=== PATIENT | female | born 1990 | race African-American/Black ===

== ENCOUNTER 2019-12-12 06:41 | Inpatient (IN) ==
[2019-12-12] MEDS ORDERED: D5 1/2 NS 1000 ML 1,000 ML IV ONE (06:47)
[2019-12-12] MEDS ORDERED: D5LR 1L W PITOCIN 10 UNITS/L 10 UNITS/1,000 ML BAG IV ONE (06:48)
[2019-12-12] MEDS ORDERED: PHENERGAN INJ 25 MG IM PRN ×3 (07:11→21:43)
[2019-12-12] MEDS ORDERED: PITOCIN IVP ONE (07:11)
[2019-12-12] MEDS ORDERED: D5LR 1L W PITOCIN 10 UNITS/L 10 UNITS/1,000 ML BAG IV PRN (07:11)
[2019-12-12] MEDS ORDERED: MORPHINE SULFATE INJ 2 MG INJ IVP PRN (07:11)
[2019-12-12] MEDS ORDERED: REGLAN INJ 10 MG VIAL IVP PRN ×3 (07:11→16:58)
[2019-12-12] MEDS: D5 1/2 NS 1000 ML 1,000 ML IV SCH ×2 (07:15→16:29)
[2019-12-12] MEDS ORDERED: STADOL INJ IVP PRN (07:15)
[2019-12-12 08:00] LABS: URIC ACID 4.7 mg/dL (2.6-6.0)
--- NOTE | 2019-12-12 08:11 | US ---
HISTORYFETAL POSITION FOR INDUCTIONSTUDYOB GREATER THAN 14 WEEKS [id number]/30/2020TECHNIQUELimited Ob ultrasoundFINDINGSSingle gestational with ceph alic presentation. Placental location is anterior. heart rate 150 beats per minute. Four-chambe r heart is present. BPD 85 cm the weeks 2 days.IMPRESSIONCephalic presentation.Electronically signed by: Elton Aguillon (Dec 12, 2019 08:11:01)
[2019-12-12] MEDS ORDERED: NS IRRIGATION* 1,000 ML ONE (13:56)
[2019-12-12] MEDS ORDERED: LR 1000 ML IV 1,000 ML IV ONE ×2 (14:45→16:06)
[2019-12-12] MEDS ORDERED: ANCEF IV ONE (14:46)
[2019-12-12] MEDS ORDERED: DILAUDID INJ ONE (15:14)
[2019-12-12] MEDS ORDERED: EPHEDRINE SULFATE INJ ONE (15:20)
[2019-12-12] MEDS ORDERED: VERSED ONE (15:20)
[2019-12-12] MEDS ORDERED: PITOCIN ONE (15:20)
[2019-12-12] MEDS ORDERED: ZOFRAN INJ 4 MG VIAL IVP PRN (16:52)
[2019-12-12] MEDS ORDERED: DILAUDID INJ IVP PRN (16:52)
[2019-12-12] MEDS ORDERED: BENADRYL INJ 50 MG VIAL IVP PRN ×2 (16:52→16:58)
[2019-12-12] MEDS ORDERED: TORADOL 30 MG VIAL IVP PRN (16:58)
[2019-12-12] MEDS ORDERED: PERCOCET TAB 5/325 MG PO PRN (16:58)
[2019-12-12] MEDS ORDERED: NARCAN INJ IVP PRN (16:58)
[2019-12-12] MEDS ORDERED: MILK OF MAGNESIA PO PRN (17:19)
[2019-12-12] MEDS ORDERED: ADACEL or BOOSTRIX TDaP VACCINE IM ONE (17:19)
[2019-12-12] MEDS ORDERED: AMBIEN PO PRN (17:19)
[2019-12-12] MEDS ORDERED: DERMOPLAST PAIN RELIEF SPRAY TOP PRN (17:19)
[2019-12-12] MEDS: TORADOL 30 MG VIAL IVP SCH (18:56)
[2019-12-12] MEDS ORDERED: PHENERGAN INJ 25 MG IM ONE (21:45)
[2019-12-13] MEDS: TORADOL 30 MG VIAL IVP SCH ×4 (01:35→17:56)
[2019-12-13 06:14] LABS: HEMATOCRIT 33.4 % (36.0-47.0); HEMOGLOBIN 11.4 g/dL (12.0-16.0)
--- NOTE | 2019-12-13 07:04 | NOTE.PROBC ---
Progress Note OB-C/S Subjective Data Subjective: No complaints, decreased lochia. Tolerating regular diet. No N/V. Ambulating well. Harvey draining well. Pain under good control with toradol. Objective Data Result Diagrams: 12/13/19 05:05 Objective Data: CV= RRR no MRG Lungs=CTA Bilaterally Abd=(+) BS, soft, ND, appropriately tender near incision. Bandage removed. Incision clean/dry/intact, no erythema, no bleeding, no discharge. Dermabond/St itches intact. Fundus firm/NT/ at -2 cm below umbilicus. Ext= No edema, NT, No Cords. Graduated Compression Stockings/Sequential Compression Devices Bilaterally. Assessment Assessment: routine s/p c/s Plan (1) S/P section: Plan: ambulate tid with PT to decrease risk
[2019-12-13] MEDS: PRENATAL PLUS PO SCH (09:47)
[2019-12-13] MEDS ORDERED: TORADOL 30 MG VIAL IVP PRN (18:00)
[2019-12-13] MEDS: MOTRIN TAB 800 MG PO PRN (18:02)
[2019-12-14] MEDS: MOTRIN TAB 800 MG PO PRN ×2 (04:19→15:12)
[2019-12-14] MEDS: PRENATAL PLUS PO SCH (08:30)
--- NOTE | 2019-12-14 09:29 | NOTE.PROBC ---
Progress Note OB-C/S Subjective Data Subjective: No complaints, decreased lochia. Tolerating regular diet. No N/V. Ambulating well. Harvey draining well. Pain under good control with toradol. Objective Data Result Diagrams: 12/13/19 05:05 Objective Data: CV= RRR no MRG Lungs=CTA Bilaterally Abd=(+) BS, soft, ND, appropriately tender near incision. Bandage removed. Incision clean/dry/intact, no erythema, no bleeding, no discharge. Dermabond/St itches intact. Fundus firm/NT/ at -3 cm below umbilicus. Ext= No edema, NT, No Cords. Graduated Compression Stockings/Sequential Compression Devices Bilaterally. Assessment Assessment: pt doing well and could go home, due to infant not ready I will keep one more day Plan (1) S/P section: Plan: stable and improving
[2019-12-14 16:37] VITALS: BP 141/69
[2019-12-14] MEDS ORDERED: DEPO-PROVERA CONTRACEPTIVE INJ IM ONE (19:21)
--- OUTSIDE RECORDS SUMMARY | 2019-12-16 12:03 | XMS | Continuity of Care Document ---
:1990 Author Name Sales Support Administrator, System Address Unavailable Unavailable , Care Team Providers Name Role Phone No, PCP Unavailable Unavailable Haley Sr, Jovan Perez Unavailable Radha Unavailable Unavailable Lucille Unavailable Unavailable Unavailable Unavailable Problems Name Dates Details Abnormal glucose affecting (O99.810, 648.80) Comments: She has failed her 1 hour GTT and a 3hour GTT has been ordered. Status: Active Anemia, antepartum (O99.019, 648.23) Sta tus: Active BV (bacterial vaginosis) (N76.0, 616.10) Comments: treat with flagyl and macrobidShe had sex last night and started spotting today but also has a dirty urine sample and wet mount Status: Active Dysuria in (O26.899, 646.80) S tatus: Active Encounter for supervision of normal preg zulay in second trimester (Z34.92, V22.1) Status: Active Encounter for supervision of normal preg zulay in third trimester (Renamed from Encounter for supervision of normal first in third trimester) (Z34.03, V22.0) Status: Active Excessive weight gain in in second trimester (O26. 02, 646.13) Status: Active Gestational hypertension, third trimester (O13.3, 642.33) Status: Active Gestational proteinuria, antepartum (O12.10, 646.23) Status: Active Large for dates (P08.1, 766.1) Status: A ctive No pertinent past medical history Status : Active Obesity in , antepartum, third trimester (O99.213, 649.13) Status: Active Pregnancies () Comments: 1. Status: Active Pregnancies (Para) Comments: 0. Status: Active headache in third trimester (O26.893, 646.83) Status: Active Status Comments: . Positive home test. Status: Active Proteinuria (R80.9, 791.0) Status: Activ e TDAP vaccination (41858) (Renamed from N eed for vaccination with diphtheria, tetanus, pertussis (DTP), and Haemophilus influenzae type B vaccine) (Z23, V06.8) Status: Active Urinary tract infection in mother during third trimester of (O23.43, 646.63) Comments: The abx is chosen for coverage of both UTI and a possible sinus issue Status: Active UTI in (O23.40, 646.60) Status : Active Medications Name Dates Details 28-0.8 MG Oral Tablet 1 (one) Tablet daily for 30 days Quantity: 30 {Tablet} Refills: 11 Ordered:28-May-2019 Carmen Garcia Start : 28-May-2019 Active Amoxicillin-Pot Clavulanate 875-125 MG Oral Tablet 1 (one) Tablet two times daily for 7 days Quantity: 14 {Tablet} Refills: 0 Ordered:19-Nov-2019 Jovan De Leon Sr Start : 19-Nov-2019 End : 26-Nov-2019 Inactive Macrodantin 100 MG Oral Capsule 1 (one) Capsule two times daily for 7 days Quantity: 14 {Capsule} Refills: 0 Ordered:05-Jul-2019 Jovan De Leon Sr Start : 05-Jul-2019 End : 12-Jul-2019 Inactive metroNIDAZOLE 500 MG Oral Tablet 1 (one) Tablet two times daily for 7 days Quantity: 14 {Tablet} Refills: 0 Ordered:05-Jul-2019 Jovan De Leon Sr Start : 05-Jul-2019 End : 12-Jul-2019 Inactive No Known Historical Medications Sulfamethoxazole-Trimethoprim 800-160 MG Oral Tablet 1 (one) Tablet two times daily for 7 days Quantity: 14 {Tablet} Refills: 0 Ordered:25-Jul-2019 Jovan De Leon Sr Start : 25-Jul-2019 End : 01-Aug-2019 Inactive Allergies and Adverse Reactions Name Dates Details No Known Allergies (Allergy) Onset: 28-May-2019 Status: Act zelda Past Medical History Name Dates Details Encounter for supervision of normal preg zulay in first trimester (Renamed from Encounter for supervision of normal in first trimester) (Z34.91, V22.1) Status: Inactive as of Encounter for supervision of normal preg zulay in second trimester (Z34.92, V22.1) Status: Inactive as of Nocturia (R35.1, 788.43) Comments: Will send urine for cultureshe only took her Macrobid once per day. Apparently miss-read the rx. Status: Inactive as of 13-Nov-2019 Obesity affecting in second trimester (O99.212, 64 9.13) Status: Inactive as of 25-Oct-2019 Procedures Procedure Dates Details IMMUNIZ ADMNIN, 1 VAC, SNGL/COMBO ([id number]) Date: 04-Dec-2019 Completed 04-Dec-2019 TDAP VACCINE IM, >7 YEARS (18323) Date: 04-Dec-2019 Comple rena 04-Dec-2019 OBSTETRICAL CARE ([id number]) Date: 19-Nov-2019 Completed OBSTETRICAL CARE ([id number]) Date: 28-May-2019 Completed No Surgeries Completed Date Value Details 04-Dec-2019 OBSTETRICAL CARE ([id number]) Result: [MATERNAL / DA TA] [place] by LMP: 12/31/2019; Movement: Present; Edema, face: Trace; Edema, hands: 1+; Edema, legs & feet: 1+; Vaginal Fluid: Absent; Station: out of pelvis [MATERNAL / DATA \ Gestational Age by I nitial Exam] Weeks: 36 Weeks; Days: 1 Day [MATERNAL / DATA \ Fundal Height] Fundal Height (Description): S>D [MATERNAL / DATA \ Heart] Heart Rate: 145 bpm; Heart Tones: Present by doptone; Heart Tone Quadrant: RLQ [CERVIX] Consistency: Average; Length: >2 cm; Position: Posterior; Effacement: Uneffaced; Dilatation: Closed; Membranes: Intact; Assessment method: Vaginal exam [ LIE & PRESENTATION] Lie: Longitudinal; Head: Not Examined; Presentation: Vertex; Descent: Absent [NEXT APPOINTMENT] Initials: ml; Comments: induction next week 27-Nov-2019 OBSTETRICAL CARE ([id number]) Result: [MATERNAL / DA TA] [place] by LMP: 12/31/2019; Labor Signs/Symptoms: 0; Edema, face: 0 [MATERNAL / DATA \ Gestational Age by Initial Exam] Weeks: 35 Weeks; Days: 1 Day [MATERNAL / D TE \ Fundal Height] Fundal Height (Description): S>D [MATERNAL / DATA \ Heart] Heart Rate: 155 bpm; Heart Tones: Present by doptone; Heart Tone Quadrant: RLQ [ LIE & PRESENTATION] Lie: N/A; Head: Not Examined; Presentation: Vertex; Descent: N/A [NEXT APPOINTMENT] Next Appointment: 1 week; Initials: ml; Comments: sched 37 week induction for gestational hypertension 13-Nov-2019 OBSTETRICAL CARE ([id number]) Result: [MATERNAL / DA TA] [place] by LMP: 12/31/2019; Movement: Present; Labor Signs/Symptoms: 0; Edema, face: 0 [MATERNAL / DATA \ Gestational Age by Initial Exam] Weeks: 33 Weeks; Days: 1 Day [MATERNAL / DATA \ Fundal Height] Fundal Height: 40 cm; Fundal Height (Description): S>D [MATERNAL / DATA \ Heart] Heart Rate: 160 bpm; Heart Tones: Present by dop tone; Heart Tone Quadr ant: LLQ [ LIE & PRESENTATION] Lie: Longitudinal; Head: Not Examined; Presentation: Inconclusive [NEXT APPOINTMENT] Next Appointment: 2 weeks; Initials: ml 25-Oct-2019 OBSTETRICAL CARE ([id number]) Result: [MATERNAL / DA TA] [place] by LMP: 12/31/2019; Movement: Present; Labor Signs/Symptoms: 0; Edema, face: 0 [MATERNAL / DATA \ Gestational Age by Initial Exam] Weeks: 30 Weeks; Days: 3 Days [MATERNAL / DIONICIO A \ Fundal Height] Fundal Height (Description): S>D [MATERNAL / DATA \ Heart] Heart Rate: 150 bpm; Heart Tones: Present by doptone; Heart Ton e Quadrant: N/A [ LIE & PRESENTATION] Lie: Inconclusive; Head: Not Examined; Presentation: Inconclusive; Descent: N/A [NEXT APPOINTMENT] Next Appointment: 2 weeks; Initials: ml 11-Oct-2019 OBSTETRICAL CARE ([id number]) Result: [MATERNAL / DA TA] [place] by LMP: 12/31/2019; Movement: Present; Edema, face: 0; Edema, hands: 0; Edema, legs & feet: 0 [MATERNAL / DATA \ Gestational Age by Initial Exam] Weeks: 28 We eks; Days: 3 Days [MATERNAL / DATA \ Fundal Height] Fundal Height (Description): S>D [MATERNAL / DATA \ Heart] Heart Rate: 155 bpm; Heart Tones: Present by doptone; Feta l Heart Tone Quadrant: N/A [ LIE & PRESENTATION] Lie: N/A; Head: Not Examined; Presentation: N/A; Descent: N/A [NEXT APPOINTMENT] Next Appointment: 2 weeks; Initials: ml; Comments: 3 hour GTT ordered 18-Sep-2019 OBSTETRICAL CARE ([id number]) Result: [MATERNAL / DA TA] [place] by LMP: 12/31/2019; Movement: Present; Labor Signs/Symptoms: 0 [MATERNAL / DATA \ Gestational Age by Initial Exam] Weeks: 25 Weeks; Days: 1 Day [MATERNAL / DATA \ Fundal Height ] Fundal Height (Description): S>D [MATERNAL / DATA \ Heart] Heart Rate: 160 bpm; Heart Tones: Present by doptone; Heart Tone Quadrant: N/A [ LIE & PRESENTATION] Fe jay Lie: N/A; Head: Not Examined; Presentation: N/A; Descent: N/A [NEXT APPOINTMENT] Next Appointment: 4 weeks; Initials: ml 03-Sep-2019 OBSTETRICAL CARE ([id number]) Result: [MATERNAL / DA TA] [place] by LMP: 12/31/2019; Movement: Present; Labor Signs/Symptoms: 0; Edema, face: 0 [MATERNAL / DATA \ Gestational Age by Initial Exam] Weeks: 23 Weeks [MATERN AL / DATA \ Fundal Hei ght] Fundal Height (Description): S>D [MATERNAL / DATA \ Heart] Heart Rate: 145 bpm; Heart Tones: Present by doptone; Heart Tone Quadrant: N/ A [ LIE & PRESENTATION] Lie: N/A; Head: Not Examined; Presentation: N/A; Descent: N/A [NEXT APPOINTMENT] Next Appointment: 2 weeks; Initials: 26-Aug-2019 OBSTETRICAL CARE ([id number]) Result: [MATERNAL / DA TA] [place] by LMP: 12/31/2019; Movement: Present; Edema, face: 0; Edema, hands: 0; Edema, legs & feet: 0 [MATERNAL / DATA \ Gestational Age by Initial Exam] Weeks: 21 We eks; Days: 6 Days [MATERNAL / DATA \ Fundal Height] Fundal Height (Description): S>D [MATERNAL / DATA \ Heart] Heart Rate: 155 bpm; Heart Tones: Present by doptone; Feta l Heart Tone Quadrant: N/A [ LIE & PRESENTATION] Lie: N/A; Head: Not Examined; Presentation: N/A; Descent: N/A [NEXT APPOINTMENT] Next Appointment: 3 weeks; Initials: 22-Aug-2019 OBSTETRICAL CARE ([id number]) Result: [MATERNAL / DA TA] [place] by LMP: 12/31/2019; Movement: Present; Labor Signs/Symptoms: 0; Edema, face: Trace [MATERNAL / DATA \ Gestational Age by Initial Exam] Weeks: 21 Weeks; Da ys: 2 Days [MATERNAL / DATA \ Heart] Heart Rate: 160 bpm; Heart Tones: Present by doptone; Heart Tone Quadrant: N/A [ LIE & PRESENTATION] Lie: N/A; Hea d: Not Examined; Prese ntation: N/A; Descent: N/A [NEXT APPOINTMENT] Next Appointment: 4 weeks; Initials: 25-Jul-2019 OBSTETRICAL CARE ([id number]) Result: [MATERNAL / DA TA] [place] by LMP: 12/31/2019; Movement: Not Detected; Labor Signs/Symptoms: 0; Edema, face: 0 [MATERNAL / DATA \ Gestational Age by Initial Exam] Weeks: 17 Weeks; D ays: 2 Days [MATERNAL / FETA L DATA \ Fundal Height] Fundal Height (Description): S>D [MATERNAL / DATA \ Heart] Heart Rate: 160 bpm; Heart Tones: Present by doptone; Hear t Tone Quadrant: N/A [ LIE & PRESENTATION] Lie: N/A; Presentation: N/A; Descent: N/A [NEXT APPOINTMENT] Next Appointment: 4 weeks; Initials: ml 05-Jul-2019 OBSTETRICAL CARE ([id number]) Result: [MATERNAL / DA TA] [place] by LMP: 12/31/2019; Movement: Present; Labor Signs/Symptoms: 0; Edema, face: 0 [MATERNAL / DATA \ Gestational Age by Initial Exam] Weeks: 14 Weeks; Days: 3 Days [MATERNAL / DIONICIO A \ Heart] Heart Rate: 155 bpm; Heart Tones: Present by doptone; Heart Tone Quadrant: N/A [ LIE & PRESENTATION] Lie: N/A; Present ation: N/A; Descent: N /A [NEXT APPOINTMENT] Next Appointment: 3 weeks; Initials: ml 27-Jun-2019 OBSTETRICAL CARE ([id number]) Result: [MATERNAL / DA TA] [place] by LMP: 12/31/2019; Movement: Present; Labor Signs/Symptoms: 0; Edema, face: 0 [MATERNAL / DATA \ Gestational Age by Initial Exam] Weeks: 13 Weeks; Days: 2 Days [MATERNAL / DIONICIO A \ Heart] Heart Rate: 160 bpm; Heart Tones: Present by doptone; Heart Tone Quadrant: N/A [ LIE & PRESENTATION] Lie: N/A; Head: N ot Examined; Presentat ion: N/A; Descent: N/A [NEXT APPOINTMENT] Next Appointment: 4 weeks; Initials: ; Comments: we discussed the MSAFP and she will let us know on the next visit Immunization Name Dates Details Tdap (7 years and up) on: 04-Dec-2019 Comments: [facility] Given: * Tdap (Tetanus, Diphtheria, Pertussis) (05/06/14) Lot #: [id number] Family History Unknown Family Member Name Dates Details Hypertension Comments: Mother. Status: Active Social History Name Dates Details Drug Use: Recently quit drug use. Uses marijuana. Comments: stopped drug use day of confirmed Status: Active Exercise History: housework. yardwork. S tatus: Active Non Drinker/No Alcohol Use Status: Activ e Prior tobacco use Status: Active Status Name Dates Details 04-Dec-2019 [place]: 31-Dec-2019 Vital Signs Date Test Result Details [id number] Body temperature 98.4 f Comments: Meth od: Oral Heart Rate 131 /min Comments: Pattern: R egular Respiratory rate 20 /min Comments: Pattern: U nlabored O2 SAT 98 % Comments: Room air Systolic blood pressure 140 mm[Hg] Comments: Patien t Position: Sitting; Cuff Location: Left Arm; Cuff Size: Standard Diastolic blood pressure 90 mm[Hg] Comments: Patie nt Position: Sitting; Cuff Location: Left Arm; Cuff Size: Standard Weight 309 lb Body height 63 in Body mass index (BMI) [Ratio] 54.74 kg/m2 Body surface area Derived from formula 2.33 m2 :57 Body temperature 96.7 f Comments: Metho d: Oral Heart Rate 137 /min Comments: Pattern: R egular Respiratory rate 18 /min Comments: Pattern: U nlabored O2 SAT 96 % Comments: Room air Systolic blood pressure 150 mm[Hg] Comments: Patien t Position: Sitting; Cuff Location: Left Arm; Cuff Size: Standard Diastolic blood pressure 83 mm[Hg] Comments: Patie nt Position: Sitting; Cuff Location: Left Arm; Cuff Size: Standard Weight 303 lb Body height 63 in Body mass index (BMI) [Ratio] 53.67 kg/m2 Body surface area Derived from formula 2.31 m2 :05 Body temperature 97.3 f Comments: Metho d: Tympanic Heart Rate 109 /min Comments: Pattern: R egular Respiratory rate 20 /min Comments: Pattern: U nlabored O2 SAT 99 % Comments: Room air Systolic blood pressure 131 mm[Hg] Comments: Patien t Position: Sitting; Cuff Location: Left Arm; Cuff Size: Standard Diastolic blood pressure 87 mm[Hg] Comments: Patie nt Position: Sitting; Cuff Location: Left Arm; Cuff Size: Standard Weight 298 lb Body height 63 in Body mass index (BMI) [Ratio] 52.79 kg/m2 Body surface area Derived from formula 2.29 m2 :53 Body temperature 98.7 f Comments: Metho d: Oral Heart Rate 131 /min Comments: Pattern: R egular Respiratory rate 18 /min Comments: Pattern: U nlabored O2 SAT 98 % Comments: Room air Systolic blood pressure 138 mm[Hg] Comments: Patien t Position: Sitting; Cuff Location: Left Arm; Cuff Size: Standard Diastolic blood pressure 82 mm[Hg] Comments: Patie nt Position: Sitting; Cuff Location: Left Arm; Cuff Size: Standard Weight 298 lb Body height 63 in Body mass index (BMI) [Ratio] 52.79 kg/m2 Body surface area Derived from formula 2.29 m2 :09 Body temperature 99.1 f Comments: Meth od: Oral Heart Rate 121 /min Comments: Pattern: R egular Respiratory rate 18 /min Comments: Pattern: U nlabored O2 SAT 99 % Comments: Room air Systolic blood pressure 138 mm[Hg] Comments: Patien t Position: Sitting; Cuff Location: Left Arm; Cuff Size: Standard Diastolic blood pressure 83 mm[Hg] Comments: Patie nt Position: Sitting; Cuff Location: Left Arm; Cuff Size: Standard Weight 296.25 lb Body height 63 in Body mass index (BMI) [Ratio] 52.48 kg/m2 Body surface area Derived from formula 2.29 m2 :40 Body temperature 98.2 f Comments: Meth od: Oral Heart Rate 108 /min Comments: Pattern: R egular Respiratory rate 20 /min Comments: Pattern: U nlabored O2 SAT 100 % Comments: Room air Systolic blood pressure 146 mm[Hg] Comments: Patien t Position: Sitting; Cuff Location: Left Arm; Cuff Size: Standard Diastolic blood pressure 84 mm[Hg] Comments: Patie nt Position: Sitting; Cuff Location: Left Arm; Cuff Size: Standard Weight 298.5 lb Body height 63 in Body mass index (BMI) [Ratio] 52.88 kg/m2 Body surface area Derived from formula 2.29 m2 :37 Body temperature 98.5 f Comments: Metho d: Oral Heart Rate 123 /min Comments: Pattern: R egular Respiratory rate 18 /min Comments: Pattern: U nlabored O2 SAT 99 % Comments: Room air Systolic blood pressure 135 mm[Hg] Comments: Patien t Position: Sitting; Cuff Location: Left Arm; Cuff Size: Standard Diastolic blood pressure 88 mm[Hg] Comments: Patie nt Position: Sitting; Cuff Location: Left Arm; Cuff Size: Standard Weight 288.25 lb Body height 63 in Body mass index (BMI) [Ratio] 51.06 kg/m2 Body surface area Derived from formula 2.26 m2 :59 Body temperature 98.5 f Comments: Metho d: Oral Heart Rate 98 /min Comments: Pattern: R egular Respiratory rate 20 /min Comments: Pattern: U nlabored O2 SAT 100 % Comments: Room air Systolic blood pressure 136 mm[Hg] Comments: Patien t Position: Sitting; Cuff Location: Left Arm; Cuff Size: Standard Diastolic blood pressure 71 mm[Hg] Comments: Patie nt Position: Sitting; Cuff Location: Left Arm; Cuff Size: Standard Weight 292.375 lb Body height 63 in Body mass index (BMI) [Ratio] 51.79 kg/m2 Body surface area Derived from formula 2.27 m2 :51 Body temperature 97.5 f Comments: Meth od: Oral Heart Rate 98 /min Comments: Pattern: R egular Respiratory rate 18 /min Comments: Pattern: U nlabored O2 SAT 99 % Comments: Room air Systolic blood pressure 136 mm[Hg] Comments: Patien t Position: Sitting; Cuff Location: Left Arm; Cuff Size: Standard Diastolic blood pressure 73 mm[Hg] Comments: Patie nt Position: Sitting; Cuff Location: Left Arm; Cuff Size: Standard Weight 292.125 lb Body height 63 in Body mass index (BMI) [Ratio] 51.75 kg/m2 Body surface area Derived from formula 2.27 m2 :23 Body temperature 98.9 f Comments: Meth od: Oral Heart Rate 112 /min Comments: Pattern: R egular Respiratory rate 18 /min Comments: Pattern: U nlabored O2 SAT 99 % Comments: Room air Systolic blood pressure 135 mm[Hg] Comments: Patien t Position: Sitting; Cuff Location: Left Arm; Cuff Size: Standard Diastolic blood pressure 81 mm[Hg] Comments: Patie nt Position: Sitting; Cuff Location: Left Arm; Cuff Size: Standard Weight 285.375 lb Body height 63 in Body mass index (BMI) [Ratio] 50.55 kg/m2 Body surface area Derived from formula 2.25 m2 :07 Body temperature 97.4 f Comments: Meth od: Oral Heart Rate 119 /min Comments: Pattern: R egular Respiratory rate 20 /min Comments: Pattern: U nlabored O2 SAT 97 % Comments: Room air Systolic blood pressure 125 mm[Hg] Comments: Patien t Position: Sitting; Cuff Location: Left Arm; Cuff Size: Standard Diastolic blood pressure 80 mm[Hg] Comments: Patie nt Position: Sitting; Cuff Location: Left Arm; Cuff Size: Standard Weight 277 lb Body height 63 in Body mass index (BMI) [Ratio] 49.07 kg/m2 Body surface area Derived from formula 2.22 m2 :16 Body temperature 98.2 f Comments: Meth od: Oral Heart Rate 110 /min Comments: Pattern: R egular Respiratory rate 18 /min Comments: Pattern: U nlabored O2 SAT 99 % Comments: Room air Systolic blood pressure 109 mm[Hg] Comments: Patien t Position: Sitting; Cuff Location: Left Arm; Cuff Size: Standard Diastolic blood pressure 79 mm[Hg] Comments: Patie nt Position: Sitting; Cuff Location: Left Arm; Cuff Size: Standard Weight 275.25 lb :38 Body temperature 98 f Comments: Meth od: Oral Heart Rate 80 /min Comments: Pattern: R egular Systolic blood pressure 138 mm[Hg] Comments: Patien t Position: Sitting; Cuff Location: Left Arm; Cuff Size: Large Diastolic blood pressure 77 mm[Hg] Comments: Patie nt Position: Sitting; Cuff Location: Left Arm; Cuff Size: Large Weight 264.125 lb Body height 63 in Body mass index (BMI) [Ratio] 46.79 kg/m2 Body surface area Derived from 2.18 m2 formula :00 Body temperature 98.1 f Comments: Meth od: Oral Heart Rate 87 /min Comments: Pattern: R egular Respiratory rate 18 /min Comments: Pattern: U nlabored O2 SAT 98 % Comments: Room air Systolic blood pressure 123 mm[Hg] Comments: Patien t Position: Sitting; Cuff Location: Left Arm; Cuff Size: Standard Diastolic blood pressure 65 mm[Hg] Comments: Patie nt Position: Sitting; Cuff Location: Left Arm; Cuff Size: Standard Weight 275 lb Body height 63 in Body mass index (BMI) [Ratio] 48.71 kg/m2 Body surface area Derived from formula 2.21 m2 Results Date Description Value Details :24 HGB (HEMOGLOBIN) ([id number]) Comments: Dr. Tiffanie scott notified of results. HGB (HEMOGLOBIN) 6.1 g/dL (Abnormal) Range: 14. 4 - 16.6 :24 UA dip ([id number]) Comments: Dr. De Leon notified of results. UA - GLUCOSE Negative g/dL (Normal) UA - BILIRUBIN Negative (Normal) UA - KETONES Negative mg/dL (Normal) UA - SPECIFIC GRAVITY 1.020 (Normal) Range: 1.0 001-1.035 UA - BLOOD Negative (Normal) UA - PH 5.0 (Normal) UA - PROTEIN Trace mg/dL (Normal) UA - UROBILINOGEN 0.2 mg/dL (Normal) UA - NITRITE Negative (Normal) UA - LEUKOCYTE ESTERASE Negative (Normal) : BLOOD TYPE ANTIGEN DONOR EA A- POSITIVE (Normal ) 4 : HEMOGLOB ELECTROPHORESIS NORMAL (Normal) 4 : HEPATITIS B SURFACE ANTIGEN NEGATIVE (Normal) 4 : HIV ANTIGEN NEGATIVE (Normal) 4 : RPR (RAPID PLASMA REAGIN) NONREACTIVE (Normal) 4 : RUBELLA ANTIBODY POSITIVE (Normal) 4 : Chlamydia NEGATIVE (Normal) 4 : GC NEGATIVE (Normal) 4 : TYPE I HERP SMPLX ANTBDY 2.03- POSITIVE (Normal ) 4 : Herpes Simplex (HSV) II Ab >23.60- POSITIVE (No rmal) 4 : TSH (THYROID STIMULATING 0.8 mU/mL (Normal) Ran ge: 0.7 - 5.3 4 HORMONE) : Antibody Screen NEGATIVE (Normal) 4 [id number] URINE PREG TEST-VIS COL ([id number]) Comments : Dr. De Leon notified of results, done in office during office visit URINE PREG TEST-VIS COL Positive (Normal) Comme nts: Control line present :55 HGB (HEMOGLOBIN) ([id number]) HGB (HEMOGLOBIN) 12.8 g/dL (Normal) Range: 14.4 - 16.6 :55 UA dip (25017) UA - GLUCOSE Negative g/dL (Normal) UA - BILIRUBIN Negative (Normal) UA - KETONES Negative mg/dL (Normal) UA - SPECIFIC GRAVITY 1.010 (Normal) Range: 1.0 001-1.035 UA - BLOOD Negative (Normal) UA - PH 6.0 ug/dL (Normal) UA - PROTEIN Trace mg/dL (Normal) UA - UROBILINOGEN 0.2 mg/dL (Normal) UA - NITRITE Negative (Normal) UA - LEUKOCYTE ESTERASE Negative (Normal) :06 HGB (HEMOGLOBIN) ([id number]) Comments: Dr. Tiffanei scott notified. HGB (HEMOGLOBIN) 11.3 g/dL (Abnormal) Range: 14 .4 - 16.6 :06 UA dip ([id number]) Comments: Dr. De Leon notified of results. UA - GLUCOSE Negative g/dL (Normal) UA - BILIRUBIN Negative (Normal) UA - KETONES Negative mg/dL (Normal) UA - SPECIFIC GRAVITY 1.015 (Normal) Range: 1.0 001-1.035 UA - BLOOD Moderate(++) (Normal) UA - PH 6.0 (Normal) UA - PROTEIN Trace mg/dL (Normal) UA - UROBILINOGEN 0.2 mg/dL (Normal) UA - NITRITE Negative (Normal) UA - LEUKOCYTE ESTERASE Moderate(++) (Normal) :47 HGB (HEMOGLOBIN) ([id number]) Comments: Dr. Tiffanie scott notified of results. HGB (HEMOGLOBIN) 10.8 g/dL (Abnormal) Range: 14 .4 - 16.6 :47 UA dip (41812) Comments: Dr. De Leon notified of results. UA - GLUCOSE Negative g/dL (Normal) UA - BILIRUBIN Negative (Normal) UA - KETONES Negative mg/dL (Normal) UA - SPECIFIC GRAVITY 1.020 (Normal) Range: 1.0 001-1.035 UA - BLOOD Negative (Normal) UA - PH 5.0 (Normal) UA - PROTEIN Trace mg/dL (Normal) UA - UROBILINOGEN 0.2 mg/dL (Normal) UA - NITRITE Negative (Normal) UA - LEUKOCYTE ESTERASE Large(+++) (Normal) :34 HGB (HEMOGLOBIN) ([id number]) Comments: Dr. Tiffanie scott notified of results. HGB (HEMOGLOBIN) 10.9 g/dL (Abnormal) Range: 14 .4 - 16.6 :34 UA dip (76210) Comments: Dr. De Leon notified of results. UA - GLUCOSE Negative g/dL (Normal) UA - BILIRUBIN Negative (Normal) UA - KETONES Negative mg/dL (Normal) UA - SPECIFIC GRAVITY 1.020 (Normal) Range: 1.0 001-1.035 UA - BLOOD Negative (Normal) UA - PH 5.0 (Normal) UA - PROTEIN Negative mg/dL (Normal) UA - UROBILINOGEN 0.2 mg/dL (Normal) UA - NITRITE Negative (Normal) UA - LEUKOCYTE ESTERASE Negative (Normal) :07 HGB (HEMOGLOBIN) ([id number]) Comments: Dr. Tiffanie scott notified of result at appt HGB (HEMOGLOBIN) 11.4 g/dL (Abnormal) Range: 14 .4 - 16.6 :07 UA dip (63690) Comments: Dr. De Leon notified of results UA - GLUCOSE Negative g/dL (Normal) UA - BILIRUBIN Negative (Normal) UA - KETONES Trace(5) mg/dL (Normal) UA - SPECIFIC GRAVITY 1.015 (Normal) Range: 1.0 001-1.035 UA - BLOOD Negative (Normal) UA - PH 6.5 (Normal) UA - PROTEIN Trace mg/dL (Normal) UA - UROBILINOGEN 0.2 mg/dL (Normal) UA - NITRITE Negative (Normal) UA - LEUKOCYTE ESTERASE Negative (Normal) :41 HGB (HEMOGLOBIN) ([id number]) Comments: Dr. Tiffanie scott notified of results. HGB (HEMOGLOBIN) 11.1 g/dL (Abnormal) Range: 14 .4 - 16.6 :41 UA dip (12441) Comments: Dr. De Leon notified of results. UA - GLUCOSE Negative g/dL (Normal) UA - BILIRUBIN Negative (Normal) UA - KETONES Trace(5) mg/dL (Normal) UA - SPECIFIC GRAVITY 1.025 (Normal) Range: 1.0 001-1.035 UA - BLOOD Negative (Normal) UA - PH 6.0 (Normal) UA - PROTEIN Negative mg/dL (Normal) UA - UROBILINOGEN 0.2 mg/dL (Normal) UA - NITRITE Negative (Normal) UA - LEUKOCYTE ESTERASE Negative (Normal) [id number] HGB (HEMOGLOBIN) ([id number]) Comments: Dr. Tiffanie scott notified of results. HGB (HEMOGLOBIN) 12.2 g/dL (Abnormal) Range: 14 .4 - 16.6 :19 UA dip (09720) Comments: Dr. De Leon notified of results. UA - GLUCOSE Negative g/dL (Normal) UA - BILIRUBIN Negative (Normal) UA - KETONES Small(15)(+) mg/dL (Normal) UA - SPECIFIC GRAVITY 1.020 (Normal) Range: 1.0 001-1.035 UA - BLOOD Negative (Normal) UA - PH 6.0 (Normal) UA - PROTEIN Trace mg/dL (Normal) UA - UROBILINOGEN 0.2 mg/dL (Normal) UA - NITRITE Negative (Normal) UA - LEUKOCYTE ESTERASE Negative (Normal) :51 HGB (HEMOGLOBIN) ([id number]) HGB (HEMOGLOBIN) 13.1 g/dL (Abnormal) Range: 14 .4 - 16.6 :51 UA dip ([id number]) UA - GLUCOSE Negative g/dL (Normal) UA - BILIRUBIN Negative (Normal) UA - KETONES Trace(5) mg/dL (Normal) UA - SPECIFIC GRAVITY 1.025 (Normal) Range: 1.0 001-1.035 UA - BLOOD Negative (Normal) UA - PH 6.5 (Normal) UA - PROTEIN 30(+) mg/dL (Normal) UA - UROBILINOGEN 0.2 mg/dL (Normal) UA - NITRITE Negative (Normal) UA - LEUKOCYTE ESTERASE Negative (Normal) :18 HGB (HEMOGLOBIN) ([id number]) Comments: Dr. Tiffanie scott notified of results. HGB (HEMOGLOBIN) 13.4 g/dL (Abnormal) Range: 14 .4 - 16.6 :18 UA dip ([id number]) Comments: Dr. De Leon notified of results. UA - GLUCOSE Negative g/dL (Normal) UA - BILIRUBIN Negative (Normal) UA - KETONES Negative mg/dL (Normal) UA - SPECIFIC GRAVITY 1.010 (Normal) Range: 1.0 001-1.035 UA - BLOOD Negative (Normal) UA - PH 7.5 (Normal) UA - PROTEIN Trace mg/dL (Normal) UA - UROBILINOGEN 0.2 mg/dL (Normal) UA - NITRITE Negative (Normal) UA - LEUKOCYTE ESTERASE Negative (Normal) :04 UA dip ([id number]) Comments: Dr. De Leon notified of results. UA - GLUCOSE Negative g/dL (Normal) UA - BILIRUBIN Negative (Normal) UA - KETONES Negative mg/dL (Normal) UA - SPECIFIC GRAVITY 1.015 (Normal) Range: 1.0 001-1.035 UA - BLOOD Negative (Normal) UA - PH 6.5 (Normal) UA - PROTEIN 30(+) mg/dL (Normal) UA - UROBILINOGEN 0.2 mg/dL (Normal) UA - NITRITE Negative (Normal) UA - LEUKOCYTE ESTERASE Trace (Normal) :05 HGB (HEMOGLOBIN) ([id number]) Comments: Dr. Tiffanie scott notified of results. HGB (HEMOGLOBIN) 12.1 g/dL (Abnormal) Range: 14 .4 - 16.6 :42 HGB (HEMOGLOBIN) ([id number]) Comments: Dr. Tiffanie scott notified of results. HGB (HEMOGLOBIN) 11.1 g/dL (Abnormal) Range: 14 .4 - 16.6 :42 URINALYSIS, AUTOMATED W/O MICRO Comments : Dr. De Leon notified of results. ([id number]) UA - COLOR yellow (Normal) UA - APPEARANCE clear (Normal) UA - GLUCOSE Negative g/dL (Normal) UA - BILIRUBIN Negative (Normal) UA - KETONES Negative mg/dL (Normal) UA - SPECIFIC GRAVITY 1.030 (Normal) UA - BLOOD Negative (Normal) UA - PH 7.0 (Normal) UA - PROTEIN 30(+) mg/dL (Normal) UA - UROBILINOGEN 0.2 mg/dL (Normal) UA - NITRITE Positive (Normal) UA - LEUKOCYTE ESTERASE Small(+) (Normal) :54 HGB (HEMOGLOBIN) ([id number]) Comments: Dr. Tiffanie scott notified of results. HGB (HEMOGLOBIN) 13.5 g/dL (Abnormal) Range: 14 .4 - 16.6 :54 UA dip ([id number]) Comments: Dr. De Leon notified of results. UA - GLUCOSE Negative g/dL (Normal) UA - BILIRUBIN Small(+) (Normal) UA - KETONES Large(160)(++++) mg/dL (Normal) UA - SPECIFIC GRAVITY 1.015 (Normal) Range: 1.0 001-1.035 UA - BLOOD Negative (Normal) UA - PH 6.5 (Normal) UA - PROTEIN 30(+) mg/dL (Normal) UA - UROBILINOGEN 1 mg/dL (Normal) UA - NITRITE Negative (Normal) UA - LEUKOCYTE ESTERASE Moderate(++) (Normal) :00 Strep, Group B Ag ([id number]) Strep, Group B Ag NEGATIVE (Normal) :48 HGB (HEMOGLOBIN) ([id number]) HGB (HEMOGLOBIN) 12.8 g/dL (Abnormal) Range: 14 .4 - 16.6 Plan of Care Name Dates Details Planned Observations URINALYSIS ([id number])Indication: Gestational hypertension , third trimester On: [id number] Request Harrison Virus/Covid-19 ([id number])Indication: Gestational hypertension, third trimester On: :02 Request BLOOD TYPE ANTIGEN DONOR EAIndication: G estational hypertension, third trimester On: :48 Request CBC, PLATELETS & AUT DIFFIndication: Gestational hyper tension, third trimester On: :48 Request DRUG TEST PRSMV CHEM ANLYZRIndication: G estational hypertension, third trimester On: :48 Request METABOLIC PANEL, COMPREHENSIVEIndication : Gestational hypertension, third trimester On: :48 Request RPR (RAPID PLASMA REAGIN)Indication: Gestational hyper tension, third trimester On: :48 Request URINALYSISIndication: Gestational hypertension, third trimester On: :48 Request URINE MARCELA CULTURE-GENE COL COUNTIndicati on: Gestational hypertension, third trimester On: :48 Request CMP ([id number])Indication: Gestational hypertension, third trimester On: : Request CBC, PLATELETS & AUT DIFF ([id number])Indicat ion: Gestational hypertension, third trimester On: :29 Request 24 hour Urine for Creatinine Clearance ( [id number])Indication: Gestational hypertension, third trimester On: [id number]-[id number] Request 24 hour Urine for Protein ([id number])Indicat ion: Gestational hypertension, third trimester On: :48 Request ASSAY, PROTEIN, URINE, TOTAL ([id number])Tracey cation: Gestational proteinuria, antepartum On: [id number]-Cec-[id number]:21 Request Comments: 24 hr urin e for total protein GLUCOSE TOLERANCE TEST (GTT)Indication: Abnormal gluco se affecting On: :45 Request Glucose Tolerance, >3 specimensIndication: Abnormal gl ucose affecting On: :45 Request 1 Hour Glucose Tolerance Test-50gram jimena d ([id number])Indication: Encounter for supervision of normal in second trimester On: 5-Lbz-[id number]:16 Re quest URINE C&S ([id number])Indication: Nocturia On: :17 R equest URINE C&S ([id number])Indication: Encounter f or supervision of normal in second trimester On: 96-Hfv-753431:07 Request CBC, PLATELETS & AUT DIFFIndication: Enc ounter for supervision of normal in first trimester (Renamed from Encounter for supervision of normal in first trimester) On: 15-Jfv-263218:54 Request METABOLIC PANEL, COMPREHENSIVEIndication : Encounter for supervision of normal in first trimester (Renamed from Encounter for supervision of normal in first trimester) On: 15-Eya-[id number]:54 Request Planned Procedures INDUCTION OF LABOR, WITH DELIVERY On: 04-Dec-2019 Intent ([id number])By: Jovan De Leon Sr NST (NON-STRESS TEST) ([id number])By: On: 04-Dec-2019 Intent Jovan De Leon Sr BPP WO NON-STRESS TST On: 04-Dec-2019 Intent ([id number])By: Jovan De Leon Sr NON-STRESS TEST WITH MATERNAL On: 27-Nov-2019 Inte nt BLOOD PRESSURE MEASUREMENT ([id number])By: Jovan De Leon Sr BIOPHYSICAL PROFILE On: 27-Nov-2019 Intent ([id number])By: Jovan De Leon Sr OB US, FOLLOW-UP, PER FETUS On: 13-Nov-2019 Intent ([id number])By: Jovan De Leon Sr Comments: please give growth percentile for age based on EDC of 12/21/19 OB US, DETAILED, SNGL FETUS On: 25-Jul-2019 Intent ([id number])By: Jovan De Leon Sr TRANSVAGINAL US, OBSTETRIC On: 28-May-2019 Intent ([id number])By: Jovan De Leon Sr Encounters Office Visit On: 04-Dec-2019 7:46 Encounter Diagnosis: Gestational hyperte nsion, third trimester, TDAP vaccination ([id number]) (Renamed from Need for vaccination with diphtheria, tetanus, pertussis (DTP), and Haemophilus influenzae type B vaccine) End: 04-Dec-2019 10:40 [facility] Office Visit On: 27-Nov-2019 7:52 Encounter Diagnosis: Gestational hypertension, third t rimester, Large for dates End: 27-Nov-2019 11:39 [facility] Office Visit On: 19-Nov-2019 13:41 Encounter Diagnosis: Gestational hyperte nsion, third trimester, Large for dates, headache in third trimester, Urinary tract infection in mother during third trimester of End: 19-Nov-2019 14:19 [facility] Office Visit On: 13-Nov-2019 8:04 Encounter Diagnosis: Gestational hyperte nsion, third trimester, Obesity in , antepartum, third trimester, Large for dates End: 13-Nov-2019 11:22 [facility] Office Visit On: 25-Oct-2019 8:15 Encounter Diagnosis: Obesity in pregnanc y, antepartum, third trimester, Gestational hypertension, third trimester End: 25-Oct-2019 10:37 [facility] Review On: 11-Oct-2019 11:16 Encounter Diagnosis: Proteinuria, Gestational proteinu heather, antepartum [facility] Office Visit On: 11-Oct-2019 7:50 Encounter Diagnosis: Encounter for super vision of normal in third trimester (Renamed from Encounter for supervision of normal first in third trimester), Abnormal glucose affecting End: 11-Oct-2019 11:16 [facility] Nurse Ordered Procedures/Labs On: 04-Oct-2019 8:44 Encounter Diagnosis: Abnormal glucose affecting pregna ncy End: 04-Oct-2019 8:46 [facility] Nurse Ordered Procedures/Labs On: 19-Sep-2019 14:13 Encounter Diagnosis: Encounter for super vision of normal in second trimester End: 19-Sep-2019 14:16 [facility] Office Visit On: 18-Sep-2019 8:18 Encounter Diagnosis: Encounter for super vision of normal in second trimester, Excessive weight gain in in second trimester, Obesity affecting in second trimester End: 18-Sep-2019 11:03 [facility] Office Visit On: 03-Sep-2019 8:39 Encounter Diagnosis: Encounter for super vision of normal in second trimester End: 03-Sep-2019 9:19 [facility] Office Visit On: 26-Aug-2019 13:29 Encounter Diagnosis: Encounter for super vision of normal in second trimester End: 26-Aug-2019 14:12 [facility] Office Visit On: 22-Aug-2019 7:33 Encounter Diagnosis: Encounter for super vision of normal in second trimester, Excessive weight gain in in second trimester End: 22-Aug-2019 10:42 [facility] Office Visit On: 25-Jul-2019 7:46 Encounter Diagnosis: Encounter for super vision of normal in second trimester, Dysuria in , Nocturia End: 25-Jul-2019 10:17 [facility] Office Visit On: 05-Jul-2019 10:04 Encounter Diagnosis: Encounter for super vision of normal in second trimester, BV (bacterial vaginosis), UTI in End: 05-Jul-2019 10:30 [facility] Office Visit On: 27-Jun-2019 11:52 Encounter Reason: visit - The p atient is here for a scheduled follow-up 12 week (13 WEEKS) visit. Last menstrual period: Date: (04/01/2019). Estimated date of delivery is Estimated Delivery Date: (01/07/2020) Th End: 27-Jun-2019 13:52 e patient feels well with no complaints. Encounter Diagnosis: Encounter for supervision of normal in second trimester [facility] Nurse Ordered Procedures/Labs On: 28-May-2019 15:53 Encounter Diagnosis: Encounter for super vision of normal in first trimester (Renamed from Encounter for supervision of normal in first trimester) End: 28-May-2019 15:57 [facility] Office Visit On: 28-May-2019 14:00 Encounter Diagnosis: Encounter for super vision of normal in first trimester (Renamed from Encounter for supervision of normal in first trimester), Anemia, antepartum End: 28-May-2019 14:31 [facility]; a guarantor
== END 2019-12-14 20:20 | disposition home or self-care (01) | DRG 788 ==
LOC: LD 06:41 → MED/SURG 17:28
PROVIDERS: ADMIT Obstetrics & Gynecology; ATTEND Obstetrics & Gynecology
DX: O62.0 Primary inadequate contractions; O23.40 Unspecified infection of urinary tract in pregnancy, unspecified trimester; Z3A.37 37 weeks gestation of pregnancy; O33.9 Maternal care for disproportion, unspecified; O13.3 Gestational [pregnancy-induced] hypertension without significant proteinuria, third trimester; Z37.0 Single live birth; Z53.8 Procedure and treatment not carried out for other reasons